=== PATIENT | male | born 1990 | race Two or more races ===

== ENCOUNTER 2022-07-26 17:10 | Emergency (ER) | payer OTHER ==
[~2022-07-26] VITALS: Ht 193 cm; Wt 127.0 kg
[2022-07-26] MEDS ORDERED: SERTRALINE20 MG/1 ML (18:09)
== END 2022-07-26 19:42 | disposition home or self-care (01) ==
LOC: ER 17:10
DX: S01.92XA Laceration with foreign body of unspecified part of head, initial encounter (principal); W18.30XA Fall on same level, unspecified, initial encounter; Y93.01 Activity, walking, marching and hiking; Y92.830 Public park as the place of occurrence of the external cause